=== PATIENT | male | born 1960 | race Caucasian/White ===

== ENCOUNTER 2020-02-28 12:15 | Outpatient (CLI) | payer BC, MEDICAID, SELFPAY ==
--- NOTE | 2020-02-28 12:51 | US_ITS ---
WS: [id number] ULTRASOUND-GUIDED THERAPEUTIC AND DIAGNOSTIC PARACENTESIS Procedure, risks, and complications have been explained to the patient. Consent is obtained. Utilizing aseptic technique and 1% buffered lidocaine, a small dermatome was made through which a 5 F rench Yueh catheter was inserted. Approximately 5060 ml of clear yellow peritoneal fluid was obtained without difficulty. No complications encountered. Specimen collected and sent for analysis as requested by ordering physician. US/US paracentesis abd w [id number] IMPRESSION: Uncomplicated paracentesis yielding 5060 ml of peritoneal fluid. Ascites collected and sent for analysis as requested.
[2020-02-28 13:06] VITALS: BP 134/89; PULSE 82; RESP 18; TEMP 36.9; O2SAT 98; BMI 26.9
== END 2020-02-28 12:16 | disposition home or self-care (01) ==
LOC: CCL 12:21
PROVIDERS: Radiology Diagnostic Radiology; PCP Family Medicine; Visit Provider Family Medicine
PROC: (CPT 49082; principal; 2020-02-28 13:00)
DX: R18.8 Other ascites (principal)
CPT/HCPCS: 49083; 88112; 88305

== ENCOUNTER → 2020-03-30 07:28 | Day surgery (SDC) | payer MEDICARE, MEDICAID, SELFPAY ==
--- NOTE | 2020-03-30 08:26 | US_ITS ---
WS: [id number] ULTRASOUND-GUIDED THERAPEUTIC PARACENTESIS Procedure, risks, and complications have been explained to the patient. Consent is obtained. Utilizing aseptic technique and 1% buffered lidocaine, a small dermatome was made through which a 5 F rench Yueh catheter was inserted. Approximately 7300 ml of clear peritoneal fluid was obtained witho ut difficulty. No complications encountered. US/US paracentesis abd w [id number] IMPRESSION: Uncomplicated paracentesis yielding 7300 ml of peritoneal fluid.
[2020-03-30 10:28] VITALS: BP 121/75; PULSE 84; RESP 18; TEMP 36.9; O2SAT 94; BMI 25.8
== END ==
PROVIDERS: PCP Family Medicine; Visit Provider Radiology Diagnostic Radiology
DX: R18.8 Other ascites (principal)
CPT/HCPCS: 49083

== ENCOUNTER → 2020-04-04 10:15 | Outpatient (BNVA) | payer MEDICARE, MEDICAID, SELFPAY | PROVIDERS: PCP Family Medicine; Visit Provider Internal Medicine | DX: B18.2 Chronic viral hepatitis C (principal); D50.9 Iron deficiency anemia, unspecified; Z72.0 Tobacco use | CPT/HCPCS: 80053; 82105; 82140; 85025; 85049; 85384; 85610; 85730 ==

== ENCOUNTER 2020-04-14 09:27 | Day surgery (SDC) | payer MEDICARE, MEDICAID, SELFPAY ==
[2020-04-07 07:53] VITALS: BMI 28.7
[2020-04-14 09:57] VITALS: BP 122/72; PULSE 85; RESP 18; TEMP 36.1; O2SAT 100
--- NOTE | 2020-04-14 10:12 | ANES.PREANE2 ---
Pre-Anesthetic Assessment Pre-Anesthetic Assessment: Height/Weight: Height 1.68 m Weight 80.739 kg Temp Pulse Resp BP Pulse Ox 97.0 F L 85 18 122/72 100 04/14/20 09:57 04/14/20 09:57 04/14/20 09:57 04/14/20 09:57 04/14/20 09:57 Preop Diagnosis: d Proposed Procedure: Operation Date: 04/14/20 10:00 Proposed Procedures p EGD 24221 08658 D50.9(Not Applicable) - eSan Brito MD s Colonoscopy(Not Applicable) - Sean Brito MD Was Beta Gm taken within 24 hours: Yes Last intake: Intake Last Liquid Date 04/13/20 Last Liquid Time 23:00 Last Solid Date 04/12/20 Last Solid Time 17:00 Social: Social History: Alcohol and Tobacco Exam: Pre-Anes Outpt Exam: alert, clear to auscultation bilaterally and regular rate & rhythm Airway: Submandibular: WNL Cervical ROM: WNL MP: 2 Dentition: Chipped Pulmonary: Pulmonary: COPD CV/HEM: CV/HEM: Anemia and None reported : : None reported Hepatic: Hepatic: Hepatitis Comments: Hep C, ?hepatic encephalopathy, ESLD GI: GI: GERD Neuropsych: Neuropsych: Dementia Anesthetic Plan: ASA status: 4 Anesthesia: MAC Risk of > 500 ml blood loss (7ml/kg in children): No PFSH Anesthesia PFSH: Medical History (Updated 04/04/20 @ 11:02 by Rosy Hewitt DO) Anemia Essential (primary) hypertension History of abdominal paracentesis Social History Smoking and tobacco status: current every day smoker cigarettes Packs smoked per day: 0.5 Alcohol intake: current Alcohol intake frequency: 0-2 Drinks per Day Alcohol type: beer Adopted: No service: No History of recent travel: No Current gender identity: Male Data Anesthesia Cardiac Studies: No Data to Display
[2020-04-14] MEDS: sodium chloride 0.9% 1,000 ML 30 ML IV (10:13)
--- NOTE | 2020-04-14 10:22 | W.PM.OPSUD ---
Surgery/Procedure H&P Update DATE OF PROCEDURE: April 14, 2020 DATE H&P PERFORMED: 04/04/20 PREOP DIAGNOSIS: d PLANNED PROCEDURE: Operation Date: 04/14/20 10:00 Proposed Procedures p EGD 53105 29232 D50.9(Not Applicable) - Sean Brito MD s Colonoscopy(Not Applicable) - Sean Brito MD
[2020-04-14 10:56] VITALS: BP 130/55; PULSE 80; RESP 18; TEMP 36.3; O2SAT 96
--- NOTE | 2020-04-14 11:00 | ANE.PACU2 ---
Inpatient post-anesthesia follow up: Airway intact: Yes Vital signs: Temperature 97.0 F Pulse Rate 85 Respiratory Rate 18 Blood Pressure 122/72 Pulse Oximetry 100 Oxygen Delivery Me thod Room Air Oxygen Flow Rate Fraction of Inspir ed Oxygen Hydration adequate: Yes Nausea and vomiting: No Pain level: 1 Mental status: Baseline
--- NOTE | 2020-04-14 11:03 | SUR.OPER ---
1ML OF EPI MIXED WIT 9ML OF NS, 1 ML OF SOLUTION INTERJECTED INTO ESOPHAGUS.
[2020-04-14 11:12] VITALS: BP 127/54; PULSE 79; RESP 16; O2SAT 94
[2020-04-14 11:27] VITALS: BP 129/60; PULSE 83; RESP 16; O2SAT 96
[2020-04-14] MEDS: fluconazole premix 100 MG in empty flexible container 1 EACH 50 MG IV (11:29)
[2020-04-14 11:54] LABS: Ammonia 75 umol/L (16-60)
[2020-04-14 11:57] LABS: Basophils % 0.3 %; Eosinophils # 0.1 10^3/uL (0.0-0.8); Eosinophils % 0.9 %; Hematocrit 23.7 % (42.0-52.0); Hemoglobin 8.3 g/dL (11.7-16.6); Lymphocytes % 20.2 %; Mean Corpuscular Hemoglobin 29.9 pg (28.0-34.0); Mean Corpuscular Volume 85.3 fL (80-94); Mean Platelet Volume 10.2 fL (7.4-10.4); Monocytes # 1.5 10^3/uL (0.2-0.9); Monocytes % 10.1 %; Neutrophils # 9.95 10^3/uL (1.8-7.7); Neutrophils % 67.7 %; Nucleated Red Blood Cells # 0.1 /100WBC; Nucleated Red Blood Cells % 0.6 %; Platelet Count 58 10^3/cmm (130-400); Red Blood Count 2.78 10^6/uL (4.1-5.3); Red Cell Distribution Width 22.6 % (12.1-15.1); White Blood Count 14.7 10^3/uL (4.0-10.0)
[2020-04-14 12:15] LABS: Alanine Aminotransferase 51 U/L (0-41); Albumin Level 2.9 g/dL (3.5-5.2); Alkaline Phosphatase 63 IU/L (40-130); Blood Urea Nitrogen 61 mg/dL (6-20); Calcium 8.2 mg/dL (8.5-10.5); Carbon Dioxide 30 mmol/L (22-29); Chloride 81 mmol/L (98-107); Globulin 3.5 g/dL (1.3-4.6); Glomerular Filtration Rate 36.6 mL/min (90-130); Glucose 121 mg/dL (65-115); Osmolality Calculated 258 mOsm/kg (285-295); Sodium 124 mmol/L (136-145); Total Bilirubin 4.2 mg/dL (0.15-1.2); Total Protein 6.4 g/dL (6.6-8.7)
[2020-04-14 12:37] LABS: Anion Gap 16.4 (5-19); Aspartate Amino Transferase 107 U/L (0-40); Potassium 3.4 mmol/L (3.5-5.1)
[2020-04-17 05:39] LABS: H. Pylori / CLO Test Positive
== END 2020-04-14 12:39 | disposition home or self-care (01) ==
PROVIDERS: PCP Family Medicine; Visit Provider Internal Medicine
PROC: 0DJ08ZZ Inspection of Upper Intestinal Tract, Via Natural or Artificial Opening Endoscopic (ICD-10-PCS; CPT 43235; principal; 2020-04-14 10:00)
PROC: 0DJD8ZZ Inspection of Lower Intestinal Tract, Via Natural or Artificial Opening Endoscopic (ICD-10-PCS; CPT 45378; 2020-04-14 10:00)
DX: K29.71 Gastritis, unspecified, with bleeding (principal); K25.4 Chronic or unspecified gastric ulcer with hemorrhage; K20.9 Esophagitis, unspecified; D50.0 Iron deficiency anemia secondary to blood loss (chronic); J44.9 Chronic obstructive pulmonary disease, unspecified; F03.90 Unspecified dementia, unspecified severity, without behavioral disturbance, psychotic disturbance, mood disturbance, and anxiety; I10 Essential (primary) hypertension; F17.210 Nicotine dependence, cigarettes, uncomplicated; K72.90 Hepatic failure, unspecified without coma; B18.2 Chronic viral hepatitis C
CPT/HCPCS: 12345; 36415; 43236; 45378; 80053; 82140; 85025; 87077; 96365; J0171; J1450; J2704; J7030

== ENCOUNTER 2020-04-16 01:42 | Observation (INO) | payer MEDICARE, MEDICAID, SELFPAY ==
[2020-04-16] VITALS (42 sets, daily range): BP systolic 94–131; BP diastolic 49–74; PULSE 79–90; RESP 15–28; TEMP 36.4–36.8; O2SAT 84–96; BMI 24.4
--- NOTE | 2020-04-16 02:12 | CTR_ITS ---
PROCEDURE INFORMATION: Exam: CT Head Without Contrast Exam date and time: 04/16/2020 2:16 AM Age: 59 years old Clinical indication: Altered mental status/memory loss; Confusion or disorientation; Additional info: AMS TECHNIQUE: Imaging protocol: Computed tomography of the head without contrast. Radiation optimization: All CT scans at this facility use at least one of these dose optimization techniques: automated exposure control; mA and/or kV adjustment per patient size (includes targeted exams where dose is matched to clinical indication); or iterative reconstruction. COMPARISON: No relevant prior studies available. RADIATION DOSE METRICS: Total DLP (mGy-cm): 858.1 FINDINGS: Brain: No acute intracranial hemorrhage or mass effect. There is very mild decreased attenuation in the periventricular white matter, likely from microvascular disease. No definite acute infarct by CT. MRI could be more sensitive/specific for detection, as clinically directed. Ventricles: Ventricle size is normal for age. Bones/joints: No definite acute skull fracture. Sinuses: Included paranasal sinuses are essentially clear. Mastoid air cells: No significant acute finding. Vasculature: Vascular calcifications in the internal carotid and vertebral basilar systems. CT/CT head wo con* [id number] IMPRESSION: 1. No acute intracranial hemorrhage or mass effect. 2. No definite acute infarct by CT, see above. 3. Other findings discussed above. 4. Some limitations due to artifact from patient motion. Radiation Dose CTDIVOL = (mGy): DLP = 858.1 (mGy-cm)
--- NOTE | 2020-04-16 02:12 | XR_ITS ---
WS: [id number] EXAM: AP CHEST: PORTABLE UPRIGHT DATE OF EXAM: 04/16/2020, 0325 hours COMPARISON: NONE HISTORY: Patient is 59 years old with altered mental status. FINDINGS: The cardiac silhouette is normal in size. The mediastinal contours are normal. The pulmonary vas cularity is normal. Right lung is clear. There is a left base infiltrate/atelectasis and small left effusion. No pneumothorax. No acute bony abnormality is seen. XR/XR chest 1V portable [id number] IMPRESSION: Left base consolidation suggesting atelectasis versus pneumonia. Left pleural e ffusion.
--- NOTE | 2020-04-16 02:12 | CTR_ITS ---
PROCEDURE INFORMATION: Exam: CT Abdomen And Pelvis Without Contrast Exam date and time: 04/16/2020 2:16 AM Age: 59 years old Clinical indication: Bloating; Additional info: Abd distension, recent egd/colonoscopy TECHNIQUE: Imaging protocol: Computed tomography of the abdomen and pelvis without contrast. Radiation optimization: All CT scans at this facility use at least one of these dose optimization techniques: automated exposure control; mA and/or kV adjustment per patient size (includes targeted exams where dose is matched to clinical indication); or iterative reconstruction. COMPARISON: US paracentesis abd w [id number] 03/30/2020 8:29 AM RADIATION DOSE METRICS: Total DLP (mGy-cm): 1292.61 FINDINGS: Pleural space: There is a moderate left pleural effusion. Some strandy opacities superimposed over the pleural effusion compatible with atelectasis. Mediastinal space: The esophagus is patulous and fluid-filled. This could represent esophageal reflux. Liver: There is a nodular contour of the liver suggesting cirrhosis. Gallbladder and bile ducts: Gallbladder is filled with isodense material compatible with gallbladder sludge. Tiny gallstones are present in the dependent portion of the gallbladder. Pancreas: Normal. No ductal dilation. Spleen: Normal. No splenomegaly. Adrenals: Normal. No mass. Kidneys and ureters: Normal. No hydronephrosis. Stomach and bowel: Diverticula are present on the sigmoid colon. There are no inflammatory changes seen to suggest diverticulitis. Appendix: No evidence of appendicitis. Intraperitoneal space: Moderate ascites. Vasculature: Unremarkable. No abdominal aortic aneurysm. Lymph nodes: Unremarkable. No enlarged lymph nodes. Bladder: Keenan catheter is present. The bladder appears decompressed. Reproductive: Unremarkable as visualized. Bones/joints: Unremarkable. No acute fracture. Soft tissues: Unremarkable. CT/CT abdomen pelvis wo con [id number] IMPRESSION: 1. Mild nodular contour of the liver suggesting cirrhosis. 2. There is moderate ascites. 3. Isodense material present within the gallbladder lumen compatible with gallbladder sludge. There are small gallstones present in the dependent portion of the gallbladder as well. 4. Diverticulosis of the sigmoid colon 5. Moderate left pleural effusion. Radiation Dose CTDIVOL = (mGy): DLP = 1292.61 (mGy-cm)
--- NOTE | 2020-04-16 02:14 | ECG_ITS ---
[facility] Test Date: 2020-04-16 Pat Name: Abraham Arzola Department: Room: Gender: Male It Data Architect: : 1960 Requested By: Sharif Rosario Order Number: [id number] Trent MD: Tu Carballo M.D. Measurements Intervals [place] Rate: 84 P: 52 VT: 156 QRS: 23 QRSD: 106 T: 72 QT: 396 QTc: 469 Interpretive Statements SINUS RHYTHM ST DEVIATION AND MODERATE T-WAVE ABNORMALITY, CONSIDER ANTERIOR ISCHEMIA [-0.1+ mV T WAVE IN V3/V4] No previous ECG available for comparison Electronically Signed On 04-16-2020 18:29:26 CDT by Tu Carballo M.D. [id number] f
[2020-04-16] MEDS: sodium chloride 0.9% 500 ML IV (02:24)
--- NOTE | 2020-04-16 02:25 | PC.NURSE ---
2nd EKG obtained after pt pain increased to 6/10 from 3/10. Occasional PVC noted now.
[2020-04-16 02:31] LABS: Basophils % 0.1 %; Hematocrit 23.8 % (42.0-52.0); Hemoglobin 7.9 g/dL (11.7-16.6); Lymphocytes # 2.3 10^3/uL (0.8-4.8); Lymphocytes % 13.1 %; Mean Corpuscular HGB Conc 33.2 g/dL (30.0-36.0); Mean Corpuscular Hemoglobin 28.4 pg (28.0-34.0); Mean Corpuscular Volume 85.6 fL (80-94); Mean Platelet Volume 9.8 fL (7.4-10.4); Monocytes # 1.4 10^3/uL (0.2-0.9); Monocytes % 7.8 %; Neutrophils # 13.53 10^3/uL (1.8-7.7); Nucleated Red Blood Cells # 0.3 /100WBC; Platelet Count 73 10^3/cmm (130-400); Red Blood Count 2.78 10^6/uL (4.1-5.3); Red Cell Distribution Width 22.6 % (12.1-15.1); White Blood Count 17.4 10^3/uL (4.0-10.0)
[2020-04-16 02:35] LABS: INR 2.46 (0.8-1.2)
--- NOTE | 2020-04-16 02:38 | PC.NURSE ---
Pt enroute to cath lab tech
--- NOTE | 2020-04-16 02:42 | W.ED.AMS ---
HPI - Altered Mental Status General: Chief Complaint: Altered Mental Status Stated Complaint: AMS Time Seen by Provider: 04/16/20 02:00 History of Present Illness: HPI narrative: 59-year-old male with a history of cirrhotic liver disease. He had an EGD/colonoscopy on Friday, 2 days ago who presents with mental status changes, essentially obtundation, and a distended belly. He is currently unable to answer questions. According to EMS, the family stated they would like to have him here and possibly placed on comfort care until they are able to arrange end-of-life/hospice care for him. MD complaint: altered mental status and decreased responsiveness Onset (ago): day(s) Severity: moderate Consistency of symptoms: Getting Worse Context: liver disease Review of Systems General: Reports: ROS unobtainable due to mental status PFSH ED PFSH: Medical History (Updated 04/16/20 @ 04:29 by Stevan Cordova MD) Anemia End stage liver disease Essential (primary) hypertension Hep C w/o coma, chronic History of abdominal paracentesis Iron deficiency anemia Right tibial fracture Tobacco abuse Social History Smoking and tobacco status: current every day smoker cigarettes Packs smoked per day: 0.5 Alcohol intake: current Alcohol intake frequency: 0-2 Drinks per Day Alcohol type: beer Adopted: No service: No History of recent travel: No Current gender identity: Male Physical Exam Const: EXAM LIMITATIONS: altered mental status GENERAL APPEARANCE: lethargic and frail appearing NUTRITIONAL APPEARANCE: cachectic ORIENTATION/CONSCIOUSNESS: Yes patient obtunded and Yes lethargic Eye: COMMON NORMALS: Equal, round and reactive pupils present (sluggish) PUPIL: Yes Equal, round and reactive pupils present (sluggish) Chest: COMMONS NORMALS: normal inspection of the chest Resp: COMMON NORMALS: clear to auscultation bilaterally EFFORT & INSPECTION: Yes decreased respiratory effort AUSCULTATION: clear to auscultation bilaterally and diminished lung sounds Cardio: COMMON NORMALS: regular rhythm RATE: tachycardic RHYTHM: regular rhythm HEART SOUNDS: no murmurs GI: INSPECTION: Yes abdominal distension AUSCULTATION: Yes Hypoactive bowel sounds present PALPATION: Yes Firmness to palpation present (GI) and No Guarding due to palpation present (GI) PERCUSSION: dullness to percussion Neuro: SANIYA COMA SCALE: document GCS findings [place] coma scale eye opening: Spontaneous Saniya coma scale verbal response: None [place] coma scale motor response: Localising Saniya coma scale total score: 10 SENSORIUM/ORIENTATION: Yes lethargic Skin: GENERAL SKIN EXAM: jaundice Course Vital Signs: Vital signs: Vital Signs Temperature 98.2 F 04/16/20 01:48 Pulse Rate 85 04/16/20 04:20 Respiratory Rate 19 H 04/16/20 04:20 Blood Pressure 114/72 04/16/20 04:20 Pulse Oximetry 93 04/16/20 04:20 MDM - Altered Mental Status MDM Narrative: Medical decision making narrative: 59-year-old very sick gentleman with a history of cirrhosis presenting obtunded. His eyes are open, he withdraws from noxious stimuli. He does not follow commands. His blood pressure is 100/60. Heart rate in the 80s. Oxygen saturation was in the high 80s. He was placed on oxygen with increase in oxygenation to 95%. His white blood cell count 17.4. His hemoglobin is down to 8. His creatinine is up to 3.9. His lactic acid is 10. His sodium level is 124. His ammonia level is in the 400s. He is coagulopathic. His prognosis is quite poor. I spoke with his over the phone. She is not able to come in with him, because they have a 5-year-old autistic daughter at home. He has a pleural effusion on chest x-ray. CT shows prominent ascites. In the differential diagnosis would be SBP, pneumonia, and other forms of sepsis. His repeatedly indicates that she knows he is dying, and that she wants him kept comfortable. She wants no drastic measures including no CPR, ventilation, or other resuscitation. I explained to her that we will hydrate this gentleman, attempt to lower his ammonia level, and treat sepsis to some degree. She plans on coming in later today once she has care for her child. Discussed this case in detail with the hospitalist who agrees to admission. Because of the complexity of his care, he will go to the ICU. Because he already has a pleural effusion, his oxygen sats are marginal, and with a low albumin he is at significant risk for third spacing, standard sepsis IV fluid bolus was not given purposefully, initially since his blood pressure is holding with a current map of 76. Lab Data: Labs: Lab Results 04/16/20 04/16/20 04/16/20 Range/Units 01:51 01:51 01:51 WBC 17.4 H (4.0-10.0) 10^3/ uL RBC 2.78 L (4.1-5.3) 10^6/u L Hgb 7.9 L (11.7-16.6) g/dL Hct 23.8 L (42.0-52.0) % MCV 85.6 (80-94) fL MCH 28.4 (28.0-34.0) pg MCHC 33.2 (30.0-36.0) g/dL RDW 22.6 H (12.1-15.1) % Plt Count 73 L (130-400) 10^3/c mm MPV 9.8 (7.4-10.4) fL Neut % (Auto) 78.0 % Lymph % (Auto) 13.1 % [place] % (Auto) 7.8 % Eos % (Auto) 0.0 % Baso % (Auto) 0.1 % Neut # (Auto) 13.53 H (1.8-7.7) 10^3/u L Lymph # (Auto) 2.3 (0.8-4.8) 10^3/u L [place] # (Auto) 1.4 H (0.2-0.9) 10^3/u L Eos # (Auto) 0.0 (0.0-0.8) 10^3/u L Baso # (Auto) 0.0 (0.0-0.1) 10^3/u L Nucleated RBC % (a uto) 2.0 % Nucleated RBCs # 0.3 /100WBC PT 27.60 H (12.1-14.9) SECO NDS INR 2.46 H (0.8-1.2) APTT 40.0 H (23.9-36.7) SECO NDS Sodium 124 L (136-145) mmol/L Potassium 4.4 (3.5-5.1) mmol/L Chloride 76 L (98-107) mmol/L Carbon Dioxide 25 (22-29) mmol/L Anion Gap 27.4 H (5-19) BUN 82 H* (6-20) mg/dL Creatinine 3.9 H (0.7-1.2) mg/dL GFR Calculation 16.0 L (90-130) mL/min Glucose 133 H (65-115) mg/dL POC Glucose (70-110) mg/dL Calculated Osmolal ity 260 L (285-295) mOsm/k g Lactate (0.5-2.2) mmol/L Calcium 8.7 (8.5-10.5) mg/dL Magnesium 3.8 H (1.7-2.3) mg/dL Total Bilirubin 5.1 H (0.15-1.2) mg/dL AST 130 H (0-40) U/L ALT 59 H (0-41) U/L Alkaline Phosphata se 71 (40-130) IU/L Ammonia (16-60) umol/L C-Reactive Protein 48.8 H (0.0-4.9) mg/L Total Protein 6.5 L (6.6-8.7) g/dL Albumin 3.1 L (3.5-5.2) g/dL Globulin 3.4 (1.3-4.6) g/dL Lipase 35 (13-60) U/L Urine Color (Yellow) Urine Appearance (CLEAR) Urine pH (5-7) Ur Specific Gravit y (1.005-1.030) Urine Protein (Negative) Urine Glucose (UA) (Normal) Urine Ketones (Negative) Urine Blood (Negative) Urine Nitrate (Negative) Urine Bilirubin (NEGATIVE) Urine Urobilinogen (Negative) mg/dL Ur Leukocyte Xin ase (Negative) Ethyl Alcohol < 10 (0-10) mg/dL 04/16/20 04/16/20 04/16/20 Range/Units 02:27 02:27 02:35 WBC (4.0-10.0) 10^3/ uL RBC (4.1-5.3) 10^6/u L Hgb (11.7-16.6) g/dL Hct (42.0-52.0) % MCV (80-94) fL MCH (28.0-34.0) pg MCHC (30.0-36.0) g/dL RDW (12.1-15.1) % Plt Count (130-400) 10^3/c mm MPV (7.4-10.4) fL Neut % (Auto) % Lymph % (Auto) % [place] % (Auto) % Eos % (Auto) % Baso % (Auto) % Neut # (Auto) (1.8-7.7) 10^3/u L Lymph # (Auto) (0.8-4.8) 10^3/u L [place] # (Auto) (0.2-0.9) 10^3/u L Eos # (Auto) (0.0-0.8) 10^3/u L Baso # (Auto) (0.0-0.1) 10^3/u L Nucleated RBC % (a uto) % Nucleated RBCs # /100WBC PT (12.1-14.9) SECO NDS INR (0.8-1.2) APTT (23.9-36.7) SECO NDS Sodium (136-145) mmol/L Potassium (3.5-5.1) mmol/L Chloride (98-107) mmol/L Carbon Dioxide (22-29) mmol/L Anion Gap (5-19) BUN (6-20) mg/dL Creatinine (0.7-1.2) mg/dL GFR Calculation (90-130) mL/min Glucose (65-115) mg/dL POC Glucose (70-110) mg/dL Calculated Osmolal ity (285-295) mOsm/k g Lactate 10.0 H* (0.5-2.2) mmol/L Calcium (8.5-10.5) mg/dL Magnesium (1.7-2.3) mg/dL Total Bilirubin (0.15-1.2) mg/dL AST (0-40) U/L ALT (0-41) U/L Alkaline Phosphata se (40-130) IU/L Ammonia 473 H (16-60) umol/L C-Reactive Protein (0.0-4.9) mg/L Total Protein (6.6-8.7) g/dL Albumin (3.5-5.2) g/dL Globulin (1.3-4.6) g/dL Lipase (13-60) U/L Urine Color Yellow (Yellow) Urine Appearance Clear (CLEAR) Urine pH 5 (5-7) Ur Specific Gravit y 1.020 (1.005-1.030) Urine Protein Neg (Negative) Urine Glucose (UA) Norm (Normal) Urine Ketones Negative (Negative) Urine Blood Neg (Negative) Urine Nitrate Negative (Negative) Urine Bilirubin 1+ H (NEGATIVE) Urine Urobilinogen 1 H (Negative) mg/dL Ur Leukocyte Xin ase Negative (Negative) Ethyl Alcohol (0-10) mg/dL 04/16/20 Range/Units 02:47 WBC (4.0-10.0) 10^3/ uL RBC (4.1-5.3) 10^6/u L Hgb (11.7-16.6) g/dL Hct (42.0-52.0) % MCV (80-94) fL MCH (28.0-34.0) pg MCHC (30.0-36.0) g/dL RDW (12.1-15.1) % Plt Count (130-400) 10^3/c mm MPV (7.4-10.4) fL Neut % (Auto) % Lymph % (Auto) % [place] % (Auto) % Eos % (Auto) % Baso % (Auto) % Neut # (Auto) (1.8-7.7) 10^3/u L Lymph # (Auto) (0.8-4.8) 10^3/u L [place] # (Auto) (0.2-0.9) 10^3/u L Eos # (Auto) (0.0-0.8) 10^3/u L Baso # (Auto) (0.0-0.1) 10^3/u L Nucleated RBC % (a uto) % Nucleated RBCs # /100WBC PT (12.1-14.9) SECO NDS INR (0.8-1.2) APTT (23.9-36.7) SECO NDS Sodium (136-145) mmol/L Potassium (3.5-5.1) mmol/L Chloride (98-107) mmol/L Carbon Dioxide (22-29) mmol/L Anion Gap (5-19) BUN (6-20) mg/dL Creatinine (0.7-1.2) mg/dL GFR Calculation (90-130) mL/min Glucose (65-115) mg/dL POC Glucose 131 (70-110) mg/dL Calculated Osmolal ity (285-295) mOsm/k g Lactate (0.5-2.2) mmol/L Calcium (8.5-10.5) mg/dL Magnesium (1.7-2.3) mg/dL Total Bilirubin (0.15-1.2) mg/dL AST (0-40) U/L ALT (0-41) U/L Alkaline Phosphata se (40-130) IU/L Ammonia (16-60) umol/L C-Reactive Protein (0.0-4.9) mg/L Total Protein (6.6-8.7) g/dL Albumin (3.5-5.2) g/dL Globulin (1.3-4.6) g/dL Lipase (13-60) U/L Urine Color (Yellow) Urine Appearance (CLEAR) Urine pH (5-7) Ur Specific Gravit y (1.005-1.030) Urine Protein (Negative) Urine Glucose (UA) (Normal) Urine Ketones (Negative) Urine Blood (Negative) Urine Nitrate (Negative) Urine Bilirubin (NEGATIVE) Urine Urobilinogen (Negative) mg/dL Ur Leukocyte Xin ase (Negative) Ethyl Alcohol (0-10) mg/dL Discharge Plan Discharge Prescriptions: No Action sofosbuvir-velpatasvir [Epclusa] 400-100 mg tablet 1 tab PO DAILY Qty: 28 RF: 2 ondansetron HCl [Zofran] 4 mg tablet 4 mg PO Q8H Qty: 5 RF: 0 oxycodone 5 mg capsule 5 mg PO Q8H PRN (Reason: Pain, Severe) 30 Days Qty: 60 RF: 0 tramadol 50 mg Tablet 50 mg PO Q6H PRN (Reason: Moderate Pain (Scale Score 5-6)) RF: 0 pantoprazole 40 mg tablet,delayed release (DR/EC) 40 mg PO BID Qty: 180 RF: 8 Diflucan 200 mg tablet 200 mg PO DAILY 21 Days RF: 0 oxycodone 10 mg tablet 10 mg PO Q8H PRN (Reason: pain) Qty: 60 RF: 0 metoprolol succinate 25 mg Tablet Extended Release 24 Hr 25 mg PO DAILY RF: 0 potassium chloride 20 mEq Tablet Extended Release 20 meq PO DAILY RF: 0 furosemide [Lasix] 40 mg Tablet 40 mg PO BID RF: 0 Coding Level of Care Code ED Field Enumerator for Chg Fwd Exam Comprehensive
[2020-04-16 02:47] LABS: Alanine Aminotransferase 59 U/L (0-41); Albumin Level 3.1 g/dL (3.5-5.2); Alkaline Phosphatase 71 IU/L (40-130); Anion Gap 27.4 (5-19); Aspartate Amino Transferase 130 U/L (0-40); C Reactive Protein 48.8 mg/L (0.0-4.9); Calcium 8.7 mg/dL (8.5-10.5); Carbon Dioxide 25 mmol/L (22-29); Chloride 76 mmol/L (98-107); Globulin 3.4 g/dL (1.3-4.6); Glucose 133 mg/dL (65-115); Lipase 35 U/L (13-60); Magnesium 3.8 mg/dL (1.7-2.3); Osmolality Calculated 260 mOsm/kg (285-295); Potassium 4.4 mmol/L (3.5-5.1); Sodium 124 mmol/L (136-145); Total Bilirubin 5.1 mg/dL (0.15-1.2); Total Protein 6.5 g/dL (6.6-8.7)
[2020-04-16 02:49] LABS: Ammonia 473 umol/L (16-60)
[2020-04-16 02:51] LABS: Alcohol Level < 10 mg/dL (0-10); Blood Urea Nitrogen 82 mg/dL (6-20)
[2020-04-16 02:51] LABS: Glucose Point of Care 131 mg/dL (70-110)
[2020-04-16 02:58] LABS: Add Urine Microscopic? NO
[2020-04-16 03:03] LABS: Bilirubin Urine 1+ (NEGATIVE); Blood Urine Neg (Negative); Glucose Urine UA Norm (Normal); Ketones Urine Negative (Negative); Leukocyte Esterase Urine Negative (Negative); Nitrate Urine Negative (Negative); Protein Urine Neg (Negative); Urine Appearance Clear (CLEAR); Urine Color Yellow (Yellow); Urobilinogen Urine 1 mg/dL (Negative); pH Urine 5 (5-7)
--- NOTE | 2020-04-16 03:04 | PC.NURSE ---
patient to CT
--- NOTE | 2020-04-16 04:21 | PM.HP ---
Providers/Chief Complaint Primary Care Provider: Iván Queen Chief Complaint: AMS History of Present Illness Abraham Arzola is a 59 year old male who has chronic liver disease secondary to hepatitis C, diagnosed about 3 to 4 months ago, still waiting on getting his hepatitis C treatment, recently had EGD colonoscopy which revealed esophageal candidiasis, gastritis, colonoscopy was normal, was sent in by his because of his worsening mentation. is stating that for last 2 to 3 months his health has been gradually declining, he would not eat properly, he was drinking 1 can of beer every day until about 3 to 4 days ago, his last proper meal was about 3 months ago, he has been smoking 3 to 4 cigarettes a day, was able to communicate with the family members until yesterday, he was obtunded was not able to reciprocate at all hence sent to the ER because was not able to take care of him at home. is taking care of him autistic child as well. He has been experiencing hematemesis as well home. Diagnostics in the ER revealed systolic blood pressure, patient is tachypneic, hypoxic, severe leukocytosis, severe acidemia, DIC, acute on chronic liver disease, acute on chronic kidney disease, Patient is not able to respond to even noxious stimuli I have talked with the , she has been updated about Mr. Arzola's current condition and prognosis, she is leaning towards comfort care/hospice care and does not want any blood work, antibiotics, rectal tube, lactulose, rifaximin, diagnostic paracentesis, he is stating that her clearly stated that he does not want aggressive measures, he does not want intubation or aggressive resuscitation Review of Systems General: Reports: ROS unobtainable due to mental status (Severe hepatic encephalopathy) Medications/Allergies Home Medications Medication Instructions Recorded Confirmed Last Taken Type furosemide [Lasix] 40 mg PO BID 02/28/20 04/14/20 04/13/20 History metoprolol succinate 25 mg PO DAILY 02/28/20 04/14/20 04/14/20 06:30 History potassium chloride 20 meq PO DAILY 02/28/20 04/14/20 04/13/20 History tramadol 50 mg PO Q6H PRN 03/30/20 04/14/20 04/13/20 History sofosbuvir 400 mg-velpatasvir 100 1 tab PO DAILY #28 tab 04/04/20 04/07/20 Unknown Rx mg tablet ondansetron HCl 4 mg tablet 4 mg PO Q8H #5 tab 04/12/20 04/14/20 04/13/20 Rx oxycodone 5 mg capsule 5 mg PO Q8H PRN 30 Days #60 cap 04/13/20 04/14/20 04/13/20 Rx fluconazole [Diflucan] 200 mg PO DAILY 21 Days tab 04/14/20 Unknown Rx oxycodone 10 mg PO Q8H PRN #60 tab 04/14/20 Unknown Rx pantoprazole 40 mg PO BID #180 tab 04/14/20 Unknown Rx Allergies Allergy/AdvReac Type Severity Reaction Status Date / Time No Known Allergies Allergy Verified 04/04/20 11:02 PFSH Acute PFSH: Medical History (Updated 04/16/20 @ 05:41 by Stevan Cordova MD) Anemia End stage liver disease Essential (primary) hypertension Hep C w/o coma, chronic History of abdominal paracentesis Iron deficiency anemia Right tibial fracture Tobacco abuse Surgical History (Updated 04/16/20 @ 05:41 by Stevan Cordova MD) History of open reduction and internal fixation (ORIF) procedure Status post leg fracture Social History Smoking and tobacco status: current every day smoker cigarettes Packs smoked per day: 0.5 Alcohol intake: current Alcohol intake frequency: 0-2 Drinks per Day Alcohol type: beer Adopted: No service: No History of recent travel: No Current gender identity: Male Vitals/I&O/Wt Last Vital Signs Temp 98.2 F 04/16/20 01:48 Pulse 82 04/16/20 04:00 Resp 21 H 04/16/20 04:00 BP 109/63 04/16/20 04:00 Pulse Ox 91 04/16/20 04:00 Weight last 48 hrs Weight 79.379 kg Physical Exam Narrative: EXAM NARRATIVE: Unkempt appearance Malnourished, Trached Obtunded, no response to painful stimuli Blood-tinged secretions around oral orifice Ascites positive No extremity 1+ pitting edema S1, S2 no tachycardia Diminished breath sounds with rhonchi/diffuse Obtunded, Hypoxic on 6 L facemask Signs of decompensated liver cirrhosis+ No meaningful response from the patient Urinary Catheter Management^: Keenan: Cath Placed During This Visit: yes Urinary Catheter Date of Insertion: 04/16/20 Urinary Catheter Time of Insertion: 04:02 Data : 04/16/20 01:51 04/16/20 01:51 Micro: Microbiology 04/16/20 02:20 Blood Culture - Preliminary Blood SPECIMEN COLLECTED 04/16/20 02:27 Blood Culture - Preliminary Blood SPECIMEN COLLECTED A&P Assessment and plan (1) Hepatic encephalopathy: Status: Acute (2) Sepsis: Status: Acute (3) Hep C w/o coma, chronic: Status: Acute (4) Comfort measures only status: Status: Acute (5) Acute kidney injury superimposed on chronic kidney disease: Status: Acute (6) Hepatorenal syndrome: Status: Acute (7) Decompensated hepatic cirrhosis: Status: Acute Additional A&P Information decompensated liver cirrhosis most likely secondary to SBP Severe hepatic encephalopathy Extremely high ammonia level, Patient has not started his hepatitis C treatment yet Has been drinking beer on daily basis until few days ago Meld score 30 is stating that she would opt for comfort care and not allow antibiotics, antifungals, rifaximin, lactulose, rectal tube, or diagnostic paracentesis, PA stating that her clearly stated DNR/DNI status Will send patient to [facility], comfort measures Social consult Metabolic acidosis with lactic acidemia Most likely source is SBP Acute on chronic kidney disease most likely hepatorenal syndrome Guarded prognosis currently on comfort measures I would not use albumin Acute hypoxic respiratory failure Currently on 6 L facemask Obtunded to be on BiPAP, DNR/DNI Would titrate up his oxygen, continue comfort measures DNR/DNI N.p.o. Attestations Medical Necessity Statement*: Considering sepsis, decompensated liver cirrhosis and hepatorenal syndrome patient will be admitted for comfort measures in the hospital, guarded prognosis Time Spent in Patient Care: (>than 50% of time spent in counselling and/or direct pt care on unit). 60 minutes Coding Level of Care Code Acute Head Up Operator for Meghanng Fwd Diagnoses Hepatic encephalopathy K72.90 Sepsis A41.9 Hep C w/o coma, chronic B18.2 Comfort measures only status Z51.5 Acute kidney injury superimposed on chronic kidney disease N17.9; N18.9 Hepatorenal syndrome K76.7 Decompensated hepatic cirrhosis K72.90; K74.60
--- NOTE | 2020-04-16 04:25 | PC.NURSE ---
Dr De Leon on phone with Pts and they have confirmed that pt is a DNR and Nurse Delfino Munson RN was listing to phone conversation and can confirm does not want any life saving measures.
[2020-04-16] MEDS: sodium chloride 0.9% 1,000 ML 125 ML IV (05:09)
[2020-04-16 05:28] LABS: ABG PCO2 42.3 mmHg (35-45); ABG PH Result 7.28 (7.35-7.45); Arterial Blood Gas Hematocrit 24.3 % (42-52); Base Excess ABG -6.4 mmol/L (-2.0-2.0); Blood Gas Sample Site Brachial, right; Blood Gas Sample Type Arterial; HCO3 ABG 19.8 mmol/L (22-26); Oxygen Device OXY MASK
--- NOTE | 2020-04-16 05:55 | P.HP_ITS ---
Providers/Chief Complaint Admitting Physician: Stevan Cordova MD Primary Care Provider: Iván Queen Chief Complaint: AMS History of Present Illness Abraham Arzola is a 59 year old male who has chronic liver disease secondary to hepatitis C, diagnosed about 3 to 4 months ago, still waiting on getting his hepatitis C treatment, recently had EGD colonoscopy which revealed esophageal c andidiasis, gastritis, colonoscopy was normal, was sent in by his because of his worsening mentation. is stating that for last 2 to 3 months his health has been gradually declining, he would not eat properly, he was drinking 1 can of beer every day until about 3 to 4 days ago, his last proper meal was about 3 months ago, he has been smoking 3 to 4 cigarettes a day, was able to communicate with the family members until yesterday, he was obtunded was not able to reciprocate at all hence sent to the ER because was not able to take care of him at home. is taking care of him autistic child as well. He has been experiencing hematemesis as well home. Diagnostics in the ER revealed systolic blood pressure, patient is tachypneic, hypoxic, severe leukocytosis, severe acidemia, DIC, acute on chronic liver disease, acute on chronic kidney disease, Patient is not able to respond to even noxious stimuli I have talked with the , she has been updated about Mr. Arzola's current condition and prognosis, she is leaning towards comfort care/hospice care and does not want any blood work, antibiotics, rectal tube, lactulose, rifaximin, diagnostic paracentesis, he is stating that her clearly stated that he does not want aggressive measures, he does not want intubation or aggressive resuscitation Review of Systems General: Reports: ROS unobtainable due to mental status (Severe hepatic encephalopathy) Review of Systems General: Reports: ROS unobtainable due to mental status Medications/Allergies Home Medications Medication Instructions Recorded Confirmed Last Taken Type furosemide [Lasix] 40 mg PO BID 02/28/20 04/14/20 04/13/20 History metoprolol succinate 25 mg PO DAILY 02/28/20 04/14/20 04/14/20 06:30 History potassium chloride 20 meq PO DAILY 02/28/20 04/14/20 04/13/20 History tramadol 50 mg PO Q6H PRN 03/30/20 04/14/20 04/13/20 History sofosbuvir 400 mg-velpatasvir 100 1 tab PO DAILY #28 tab 04/04/20 04/07/20 Unknown Rx mg tablet ondansetron HCl 4 mg tablet 4 mg PO Q8H #5 tab 04/12/20 04/14/20 04/13/20 Rx oxycodone 5 mg capsule 5 mg PO Q8H PRN 30 Days #60 cap 04/13/20 04/14/20 04/13/20 Rx fluconazole [Diflucan] 200 mg PO DAILY 21 Days tab 04/14/20 Unknown Rx oxycodone 10 mg PO Q8H PRN #60 tab 04/14/20 Unknown Rx pantoprazole 40 mg PO BID #180 tab 04/14/20 Unknown Rx Allergies Allergy/AdvReac Type Severity Reaction Status Date / Time No Known Allergies Allergy Verified 04/04/20 11:02 PFSH Acute PFSH: Medical History Anemia End stage liver disease Essential (primary) hypertension Hep C w/o coma, chronic History of abdominal paracentesis Iron deficiency anemia Right tibial fracture Tobacco abuse Surgical History History of open reduction and internal fixation (ORIF) procedure Status post leg fracture Family History (Updated 04/16/20 @ 05:57 by Stevan Cordova MD) Father Cancer Lung cancer Social History Smoking and tobacco status: current every day smoker cigarettes Packs smoked per day: 0.5 Alcohol intake: current Alcohol intake frequency: 0-2 Drinks per Day Alcohol type: beer Adopted: No service: No History of recent travel: No Current gender identity: Male Vitals/I&O/Wt Last Vital Signs Temp 98.2 F 04/16/20 01:48 Pulse 89 04/16/20 05:35 Resp 17 04/16/20 05:35 BP 110/73 04/16/20 05:35 Pulse Ox 90 04/16/20 05:35 04/15/20 04/15/20 04/16/20 14:59 22:59 06:59 Intake Total 500 / 500 Balance 500 / 500 Weight last 48 hrs Weight 79.379 kg Physical Exam Narrative: EXAM NARRATIVE: Obtunded Unkempt appearance Malnourished Icteric appearance Distended abdomen, ascites positive, Blood-tinged oral secretions No response at all to noxious stimuli Hypoxic on 6 L facemask Low extremity 1+ pitting edema bilaterally Not able to reciprocate at all Diminished breath sounds bilaterally with diffuse crackles and rhonchi S1, S2 Macular rash all over his body Decompensated liver cirrhosis signs positive Urinary Catheter Management^: Keenan: Cath Placed During This Visit: yes Urinary Catheter Date of Insertion: 04/16/20 Urinary Catheter Time of Insertion: 04:02 Data : 04/16/20 01:51 04/16/20 01:51 Micro: Microbiology 04/16/20 02:20 Blood Culture - Preliminary Blood SPECIMEN COLLECTED 04/16/20 02:27 Blood Culture - Preliminary Blood SPECIMEN COLLECTED A&P Assessment and plan (1) Decompensated hepatic cirrhosis: Status: Acute (2) Hepatorenal syndrome: Status: Acute (3) Acute kidney injury superimposed on chronic kidney disease: Status: Acute (4) Comfort measures only status: Status: Acute (5) Hep C w/o coma, chronic: Status: Acute (6) Sepsis: Status: Acute Additional A&P Information Decompensated liver cirrhosis most likely due to SBP Severe leukocytosis with lactic acidemia, meld sodium 30 My concern is very high for SBP, I called his who is endorsing that her never wanted any aggressive resuscitation or intubation, she is leaning towards comfort measures, she does not want fluconazole, rifaximin, lactulose, rectal tube, diagnostic paracentesis, ceftriaxone She wants comfort measures and is agreeable for morphine and Ativan for now Severe hepatic encephalopathy Acute on chronic kidney disease most likely hepatorenal syndrome Septic most likely secondary to SBP sepsis criteria met with leukocytosis, high lactic acid, tachypnea Comfort measures Hepatitis C induced liver cirrhosis Patient was still waiting for his hepatitis C treatment to arrive from the pharmacy Comfort measures N.p.o. I have discussed goals of care and prognosis with his , ER physician Dr. De Leon also talked with his as well, she seems to have good insight and is leaning towards comfort measures Attestations Medical Necessity Statement*: Patient on comfort measures Time Spent in Patient Care: (>than 50% of time spent in counselling and/or direct pt care on unit) . 60mins Coding Level of Care Code Acute Family [employer] Consumer Sciences Professor for Chg Fwd Diagnoses Decompensated hepatic cirrhosis K72.90; K74.60 Hepatorenal syndrome K76.7 Acute kidney injury superimposed on chronic kidney disease N17.9; N18.9 Comfort measures only status Z51.5 Hep C w/o coma, chronic B18.2 Sepsis A41.9
--- NOTE | 2020-04-16 08:22 | PC.NURSE ---
When checking on patient, noted to have no respirations, no heart tones auscultated, verified by Katherine care nurse. Telemetry showing asystole at this time. TOD 075, Dr. Black and warehouse director notified. Patricia notified, gave verbal consent to release body to [facility] in [place], [place].
--- NOTE | 2020-04-16 08:35 | PC.NURSE ---
[facility] has released the body of the pt. Waiting to hear from [facility]. I contacted Alba jurado systems integration advisor at this time.
--- NOTE | 2020-04-16 09:06 | P.DES_ITS ---
Discharge Providers DDS Date of Admission: 04/16/20 04:41 Date Summary Completed: 04/16/20 Attending Provider at Admission: Stevan Cordova MD Time of : 07:55 Attending Provider at Discharge: Umesh Black MD Primary Care Provider: Iván ESPINAL Diagnoses Hospital Diagnoses (1) Decompensated hepatic cirrhosis: (2) Hepatorenal syndrome: (3) Acute kidney injury superimposed on chronic kidney disease: (4) Comfort measures only status: (5) Hep C w/o coma, chronic: (6) Sepsis: (7) Spontaneous bacterial peritonitis: (8) Hepatic encephalopathy: Reason for Visit Reason for Visit: AMS Summary Date and Time of : Date of : 04/16/20 Time of : 07:55 Summary: Summary: Patient presented there was decompensated liver cirrhosis and sepsis with highly suspected spontaneous bacterial peritonitis. Patient was encephalopathic and given his poor prognosis family proceeded with comfort care. I was called this morning by RN notifying me that patient at 07:55. Family was notified and autopsy was not requested. I would like to mention that I have not seen patient. summary performed based on history and physical. Additional Data: Advance directives?: No Discharge Plan Discharge Patient Disposition: Condition: Stable Prescriptions: No Action sofosbuvir-velpatasvir [Epclusa] 400-100 mg tablet 1 tab PO DAILY Qty: 28 RF: 2 ondansetron HCl [Zofran] 4 mg tablet 4 mg PO Q8H Qty: 5 RF: 0 oxycodone 5 mg capsule 5 mg PO Q8H PRN (Reason: Pain, Severe) 30 Days Qty: 60 RF: 0 tramadol 50 mg Tablet 50 mg PO Q6H PRN (Reason: Moderate Pain (Scale Score 5-6)) RF: 0 pantoprazole 40 mg tablet,delayed release (DR/EC) 40 mg PO BID Qty: 180 RF: 8 Diflucan 200 mg tablet 200 mg PO DAILY 21 Days RF: 0 oxycodone 10 mg tablet 10 mg PO Q8H PRN (Reason: pain) Qty: 60 RF: 0 metoprolol succinate 25 mg Tablet Extended Release 24 Hr 25 mg PO DAILY RF: 0 potassium chloride 20 mEq Tablet Extended Release 20 meq PO DAILY RF: 0 furosemide [Lasix] 40 mg Tablet 40 mg PO BID RF: 0 DS Attestations Time Spent in /Discharge Care*: less than 30 min Quality - AMI: AMI present?: No Quality - Stroke: CVA present?: No Quality - VTE: VTE present?: No Coding Level of Care Code Acute Hot W[employer] [place] Production Supervisor for Chg Fwd Diagnoses Decompensated hepatic cirrhosis K72.90; K74.60 Hepatorenal syndrome K76.7 Acute kidney injury superimposed on chronic kidney disease N17.9; N18.9 Comfort measures only status Z51.5 Hep C w/o coma, chronic B18.2 Sepsis A41.9 Spontaneous bacterial peritonitis K65.2 Hepatic encephalopathy K72.90
== END 2020-04-16 08:30 | disposition expired ==
LOC: ER 02:00 → MEDSURG 05:37 → ICU 07:09 → MEDSURG 07:09
PROVIDERS: Admitting Provider Internal Medicine; Emergency Provider Emergency Medicine; PCP Family Medicine; Visit Provider Internal Medicine
DX: K74.60 Unspecified cirrhosis of liver (principal); A41.9 Sepsis, unspecified organism; K65.2 Spontaneous bacterial peritonitis; K72.90 Hepatic failure, unspecified without coma; B18.2 Chronic viral hepatitis C; R18.8 Other ascites; K76.7 Hepatorenal syndrome; I12.9 Hypertensive chronic kidney disease with stage 1 through stage 4 chronic kidney disease, or unspecified chronic kidney disease; N18.9 Chronic kidney disease, unspecified; N17.9 Acute kidney failure, unspecified; F17.210 Nicotine dependence, cigarettes, uncomplicated; J90 Pleural effusion, not elsewhere classified; Z79.891 Long term (current) use of opiate analgesic
CPT/HCPCS: 12345; 36416; 36600; 51702; 70450; 71045; 74176; 80053; 80307; 81003; 82140; 82803; 82962; 83605; 83690; 83735; 85025; 85610; 85730; 86140; 87040; 93005; 96360; 96361; 99284; 99285; G0378; J7030; J7040